=== PATIENT | female | born 1990 | race Caucasian/White ===

== ENCOUNTER 2022-11-11 20:27 | Emergency (ER) | payer MEDICAID, SELFPAY | END 2022-11-11 20:55 | disposition left against medical advice (07) | PROVIDERS: Emergency Provider Emergency Medicine | DX: N39.0 Urinary tract infection, site not specified (principal) ==

== ENCOUNTER 2024-01-08 22:21 | Emergency (ER) | payer MEDICAID, SELFPAY ==
--- NOTE | ~2024-01-08 | XR_ITS ---
Examination: Right ankle and right foot. CLINICAL INDICATION: Injury. Pain. TECHNIQUE: Right foot 3 views. Right ankle 2 views. FINDINGS: Right foot: There is mildly displaced oblique fracture distal fifth metatarsal. No additional fracture seen. The soft tissues are mildly swollen. Right ankle: There is moderate lateral malleolar soft tissue swelling. The ankle mortise and subtalar joints are normal. XR/XR foot RT min 3V IMPRESSION: Minimally displaced oblique fracture distal fifth metatarsal No additional fracture seen. Mild soft tissue swelling lateral ankle without any visible acute fracture of ankle.
--- NOTE | ~2024-01-08 | XR_ITS ---
Examination: Right ankle and right foot. CLINICAL INDICATION: Injury. Pain. TECHNIQUE: Right foot 3 views. Right ankle 2 views. FINDINGS: Right foot: There is mildly displaced oblique fracture distal fifth metatarsal. No additional fracture seen. The soft tissues are mildly swollen. Right ankle: There is moderate lateral malleolar soft tissue swelling. The ankle mortise and subtalar joints are normal. XR/XR ankle RT min 3V IMPRESSION: Minimally displaced oblique fracture distal fifth metatarsal No additional fracture seen. Mild soft tissue swelling lateral ankle without any visible acute fracture of ankle.
[2024-01-08 22:31] VITALS: BP 150/87; PULSE 100; RESP 16; TEMP 37.1; O2SAT 100; BMI 22.5
--- NOTE | 2024-01-09 00:05 | ED_ITS ---
HPI - Extremity Injury (Lower) General Chief Complaint: Extremity Injury, Lower Stated Complaint: right ankle inj Time Seen by Provider: 01/08/24 23:40 Source: patient Mode of arrival: ambulatory Limitations: no limitations History of Present Illness HPI Narrative: Patient apparently slipped 4 steps just prior to arrival come here with pain in the right ankle and right foot no other injury Related Data Previous Rx's Medication Instructions Recorded ibuprofen 600 mg tablet 600 mg PO Q6H PRN fever or pain 01/09/24 #30 tabs Allergies Allergy/AdvReac Type Severity Reaction Status Date / Time No Known Allergies Allergy Verified 01/08/24 22:32 [No Known Allergies*] Review of Systems 2 Review of Systems: Yes all other systems are reviewed and are negative Physical Exam 2 Vital Signs: Vital Signs: Last Vital Signs Temp 98.8 F 01/08/24 22:31 Pulse 100 01/08/24 22:31 Resp 16 01/08/24 22:31 BP 150/87 H 01/08/24 22:31 Pulse Ox 100 01/08/24 22:31 O2 Del Method Room Air 01/08/24 22:31 BMI result Body Mass Index 22.5 Const: General: healthy appearing, comfortable and no acute distress HEENT: Head: Yes normal to inspection and Yes atraumatic Chest: Chest palpation & inspection: normal inspection of the chest and normal palpation of entire chest wall Resp: Effort & Inspection: normal respiratory effort Auscultation: clear to auscultation bilaterally Cardio: Palpation: normal PMI Rate: regular rate Rhythm: regular rhythm Extrem: Ankle/foot/toe images: 1. Tenderness and swelling at the base of 5th metatarsal 2. Swelling of the ankle joint neurovasc ular intact good range of movement Medical Decision Making Medical Decision Making MDM Narrative: Patient's right metatarsal fracture ortho boot was applied , crutches were given advised to follow with orthopedic Differential Diagnosis Differential Diagnoses: The differential diagnosis associated with the presentation includes Ankle fracture/metatarsal fracture Independent Interpretation I performed an independent interpretation of an: Plain X-Ray Radiology Impression Discussion of test interpretation with radiology: I have reviewed the radiologist's reading. Discharge Plan Discharge Clinical Impression: Metatarsal bone fracture Patient Disposition: Home, Self-Care Instructions: Foot Fracture in Adults (ED) Additional Instructions: Wear the ortho boot and use crutches for ambulation Ibuprofen for pain Follow-up with orthopedics in 2 weeks Keep your left leg elevated Prescriptions: New ibuprofen 600 mg tablet 600 mg PO Q6H PRN (Reason: fever or pain) Qty: 30 0RF Referrals: Michele Williamson MD [Physician] - 2 weeks
[2024-01-09] MEDS: oxyCODONE HCl Immed Release 5 MG TABLET 10 MG PO (00:35)
--- NOTE | 2024-01-09 00:53 | PC.NURSE ---
pt medicated per mar tolerated well with water. misha bandage applied to R. ankle prior to boot by Dr. Huang. ortho boot applied pt educated on use. crutches and training provided pt demonstrates proper use of crutches. +circulation. pt verbalizes d/c instructions. medical staff services manager at bedside.
== END 2024-01-09 00:55 | disposition home or self-care (01) ==
PROVIDERS: Emergency Provider Internal Medicine
DX: S92.351A Displaced fracture of fifth metatarsal bone, right foot, initial encounter for closed fracture (principal); W10.8XXA Fall (on) (from) other stairs and steps, initial encounter; Y93.89 Activity, other specified; Y92.018 Other place in single-family (private) house as the place of occurrence of the external cause; Y99.9 Unspecified external cause status
CPT/HCPCS: 73610; 73630; 99283

== ENCOUNTER 2024-01-15 14:39 | Outpatient (AMB) | payer MEDICAID, SELFPAY ==
[2024-01-15 14:43] VITALS: BMI 22.5
--- NOTE | 2024-01-15 14:43 | A.OFFVIS_ITS ---
Intake Vital Signs 01/15/24 14:43 Height 5 ft Weight 115 lb BMI 22.5 Intake Visit Reasons: FC - rt distal fifth metatarsal fx, DOI 01/08/24 Intake Note: Shasha is a 33 year old female who presents today with a short walking boot for a evaluation for her right distal fifth metatarsal fx, DOI 01/08/24. Patient reports she slipped 4 steps down leading her to injure her right ankle. She states that her pain has gotten better, however she states still having some dull pain on the ankle. Allergies No Known Allergies [No Known Allergies*] Allergy (Verified 01/15/24 14:46) HPI FC - rt distal fifth metatarsal fx, DOI 01/08/24 HPI Details 33-year-old female, who is Yakut speak ing, presents in the office today, as a new patient, for an evaluation of right ankle/foot pain. The patient presented to the ED on 01/09/2024 status post slipping down 4 steps. She was placed in a walking boot with crutches and prescribed Ibuprofen 600 mg PO Q6H PRN. While in the office today the patient presents in a short walking boot. She reports slipping down 4 steps. She states her pain has improved, but does still have a dull pain in the ankle. 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 Review of Systems Const All systems reviewed & are unremarkable except as noted in HPI and below Physical Exam Vital Signs: BMI result Body Mass Index 22.5 Const General: cooperative and no acute distress Orientation/consciousness: patient oriented x3 Resp Effort & Inspection: normal respiratory effort and able to speak in complete sentences Cardio Peripheral pulses: Peripheral pulses 2+ throughout Skin General skin exam: no rashes or lesions noted Neuro General: patient oriented x3 Extrem Other: Right ankle: Significant ecchymosis on the lateral side of the foot extend to the lateral aspect of the ankle and extending roughly ? of the way up on the lateral aspect of the right lower extremity. Very tenderness to palpation over the medial and lateral malleolus. Sensation intact. Pedal pulse intact. Moderate edema. Office Procedures Fracture Care Fracture Billing Code: Fracture Billing Code Assessment & Plan Assessment & Plan (1) High ankle sprain of right lower extremity: Code(s): S93.491A - Sprain of other ligament of right ankle, initial encounter (2) Fracture of fifth metatarsal bone of right foot: Code(s): S92.351A - Displaced fracture of fifth metatarsal bone, right foot, initial encounter for closed fracture (3) Moderate right ankle sprain: Code(s): S93.401A - Sprain of unspecified ligament of right ankle, initial encounter Plan Ms. Jose G Hogan is a [id number] female, who is Yakut speaking, presents in the office today, as a new patient, for an evaluation of right ankle/foot pain. The patient presented to the ED on 01/09/2024 status post slipping down 4 steps. She was placed in a walking boot with crutches and prescribed Ibuprofen 600 mg PO Q6H PRN. While in the office today the patient presents in a short walking boot. She reports slipping down 4 steps. She states her pain has improved, but does still have a dull pain in the ankle. 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 The patient was given a stockinette and VINICIO wrap for compression. She will remain in the short walking boot. She may weight bear as tolerated with the use of crutches. An order has been place for physical therapy to work on gentle ROM and modalities because of the amount of pain the patient is experiencing. I would like to try to limit any potential stiffness from lack of motion. She was given an out of work note until her follow up. Follow up will be in 4 weeks with repeat x-rays, or sooner if needed. X-rays of the right foot, obtained on 01/08/2024, revealed: 1.) Minimally displaced oblique fracture distal fifth metatarsal 2.) No additional fracture seen. 3.) Mild soft tissue swelling lateral ankle without any visible acute fracture of ankle. Orders: Orders PT Evaluation and Treatment Today S92.351A - Displaced fracture of fifth metatarsal bone, right foot, initial encounter for closed fracture, S93.402A - Sprain of unspecified ligament of left ankle, initial encounter, S93.491A - Sprain of other ligament of right ankle, initial encounter Patient Instructions: Scribed by Clarisse Noriega medical esthetician, for Shanti Mcclendon PA-C on 01/15/2024 at 2:48 pm, EST. Coding Level of Care Code New Pt Level 4 (05268) Diagnoses High ankle sprain of right lower extremity S93.491A Fracture of fifth metatarsal bone of right foot S92.351A Moderate right ankle sprain S93.401A CPT Codes Fracture Care - Fracture Billing Code: Fracture Billing Code ([id number])
== END 2024-01-15 15:26 | disposition home or self-care (01) ==
PROVIDERS: Visit Provider Physician Assistant
DX: S93.491A Sprain of other ligament of right ankle, initial encounter (principal); S92.351A Displaced fracture of fifth metatarsal bone, right foot, initial encounter for closed fracture; S93.401A Sprain of unspecified ligament of right ankle, initial encounter
CPT/HCPCS: 99204

== ENCOUNTER → 2024-01-15 14:39 | Outpatient (BNVA) | payer MEDICAID, SELFPAY | PROVIDERS: Visit Provider Physician Assistant | DX: S92.351A Displaced fracture of fifth metatarsal bone, right foot, initial encounter for closed fracture (principal); S93.491A Sprain of other ligament of right ankle, initial encounter | CPT/HCPCS: 99212 ==

== ENCOUNTER 2024-02-17 10:06 | Outpatient (AMB) | payer MEDICAID, SELFPAY ==
[2024-02-17 10:14] VITALS: BMI 22.5
--- NOTE | 2024-02-17 10:14 | A.OFFVIS_ITS ---
Intake Vital Signs 02/17/24 10:14 Height 5 ft Weight 115 lb BMI 22.5 Intake Visit Reasons: ov-rt distal fifth metatarsal fx, DOI 01/08/24 Intake Note: Shasha is a 33 year old female who presents today with a short walking boot for a follow up for her right distal fifth metatarsal fx, DOI 01/08/24. Patient reports she hasn't tried calling P.T due to not being sure if she needed to go after the appointment or before she was seen to start P.T. Patient is currently doing well, she states her foot is feeling better. Allergies No Known Allergies [No Known Allergies*] Allergy (Verified 02/17/24 10:14) HPI ov-rt distal fifth metatarsal fx, DOI 01/08/24 HPI Details 33-year-old female, who is Kyrgyz speak ing, presents in the office today for a follow up of a right ankle sprain and right 5th metatarsal fracture, which occurred on 01/09/2024 status post slipping down 4 steps. I last saw the patient in the office on 01/15/2024 when he was placed in an VINICIO wrap for compression and given a short walking boot. She was instructed to weight bear as tolerated with the use of crutches. She was referred to physical therapy. She was given an out of work note until follow up. While in the office today the patient reports she has not tried to call physical therapy due to not being sure if she needed to go after the appointment or before. She reports she is doing well and states her foot is doing better. 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 No ecchymosis, erythema, or edema. Tenderness to palpation over the shaft of the 5th metatarsal. Able to dorsiflex and plantarflex with no ROM restrictions, but has difficulties with inversion and eversion. Sensation intact. Pedal pulse is intact. Assessment & Plan Assessment & Plan (1) High ankle sprain of right lower extremity: Code(s): S93.491A - Sprain of other ligament of right ankle, initial encounter Qualifiers: Encounter type: subsequent encounter Qualified Code(s): S93.491D - Sprain of other ligament of right ankle, subsequent encounter (2) Fracture of fifth metatarsal bone of right foot: Code(s): S92.351A - Displaced fracture of fifth metatarsal bone, right foot, initial encounter for closed fracture Qualifiers: Encounter type: subsequent encounter Fracture alignment: nondisplaced Fracture healing: with routine healing Fracture type: closed Qualified Code(s): S92.354D - Nondisplaced fracture of fifth metatarsal bone, right foot, subsequent encounter for fracture with routine healing (3) Moderate right ankle sprain: Code(s): S93.401A - Sprain of unspecified ligament of right ankle, initial encounter Qualifiers: Encounter type: subsequent encounter Qualified Code(s): S93.401D - Sprain of unspecified ligament of right ankle, subsequent encounter Plan Ms. Jose G Hogan is a 33-year-old female, who is Kyrgyz speaking, presents in the office today for a follow up of a right ankle sprain and right 5th metatarsal fracture, which occurred on 01/09/2024 status post slipping down 4 steps. I last saw the patient in the office on 01/15/2024 when he was placed in an VINICIO wrap for compression and given a short walking boot. She was instructed to weight bear as tolerated with the use of crutches. She was referred to physical therapy. She was given an out of work note until follow up. While in the office today the patient reports she has not tried to call physical therapy due to not being sure if she needed to go after the appointment or before. She reports she is doing well and states her foot is doing better. 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 I would like for the patient to attend physical therapy to work on ROM. She did not attend after the referral was placed at the last appointment due to a misunderstanding of when she was supposed to attend. I did explain to her that she should attend physical therapy now and to begin to wean out of the boot in 2-3 weeks. She may weight bear as tolerated. 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 Follow up will be in 4 weeks, or sooner if needed. X-rays of the right ankle which were obtained while in the office today and were reviewed by me, Shanti Mcclendon PA-C, revealed routine healing of a right 5th metatarsal shaft fracture. Orders: Orders PT Evaluation and Treatment Today S92.351A - Displaced fracture of fifth metatarsal bone, right foot, initial encounter for closed fracture, S93.401A - Sprain of unspecified ligament of right ankle, initial encounter XR foot RT min 3V Today M79.673 - Pain in unspecified foot Patient Instructions: Scribed by Clarisse Noriega medical assistant dermatology, for Shanti Mcclendon PA-C on 02/17/2024 at 10:09 am, EST. Coding Level of Care Code Global (19929) Diagnoses High ankle sprain of right lower extremity, subsequent encounter S93.491D Encounter type: subsequent encounter Closed nondisplaced fracture of fifth metatarsal bone of right foot with routine healing, subsequent encounter S92.354D Encounter type: subsequent encounter Fracture alignment: nondisplaced Fracture healing: with routine healing Fracture type: closed Moderate right ankle sprain, subsequent encounter S93.401D Encounter type: subsequent encounter
== END 2024-02-17 10:43 | disposition home or self-care (01) ==
PROVIDERS: Visit Provider Physician Assistant
DX: S93.491D Sprain of other ligament of right ankle, subsequent encounter (principal); S92.354D Nondisplaced fracture of fifth metatarsal bone, right foot, subsequent encounter for fracture with routine healing
CPT/HCPCS: 99213

== ENCOUNTER 2024-02-17 14:54 | Outpatient (REF) | payer MEDICAID, SELFPAY ==
--- NOTE | ~2024-02-17 | XR_ITS ---
EXAMINATION: XR FOOT, RIGHT CLINICAL INFORMATION: Right foot pain COMPARISON: Right foot x-ray on 01/08/2024 TECHNIQUE: AP, lateral, and oblique views of the right foot. FINDINGS: BONES: Persistent oblique fracture distal shaft of right fifth metatarsal with mild medial displacement is again visualized. No callus formation could be seen. JOINTS: Alignment of joints is normal. SOFT TISSUE: Soft tissue is normal. No radiopaque foreign body or abnormal air collection is seen. XR/XR foot RT min 3V IMPRESSION: Unchanged oblique fracture distal shaft of right fifth metatarsal with mild medial displacement. No callus formation could be seen.
== END 2024-02-17 14:55 | disposition home or self-care (01) ==
LOC: HO.HOSX 14:54
PROVIDERS: Visit Provider Physician Assistant
DX: M79.673 Pain in unspecified foot (principal); S93.401A Sprain of unspecified ligament of right ankle, initial encounter; S92.351A Displaced fracture of fifth metatarsal bone, right foot, initial encounter for closed fracture; W10.8XXA Fall (on) (from) other stairs and steps, initial encounter; Y93.01 Activity, walking, marching and hiking; Y92.9 Unspecified place or not applicable; Y99.9 Unspecified external cause status
CPT/HCPCS: 73630; 99212

== ENCOUNTER 2024-03-16 13:45 | Outpatient (REF) | payer MEDICAID, SELFPAY ==
--- NOTE | ~2024-03-16 | XR_ITS ---
EXAMINATION: XR FOOT, RIGHT CLINICAL INFORMATION: Pain in unspecified foot. COMPARISON: 02/17/2024, 01/08/2024. TECHNIQUE: AP, lateral, and oblique views of the right foot. FINDINGS: Redemonstration of oblique, mildly displaced fracture through the [id number] shaft of the fifth metatarsal with some overriding of fracture fragments. Mild interval bridging callus formation. Alignment is stable. XR/XR foot RT min 3V IMPRESSION: Redemonstration of oblique, mildly displaced fracture through the [id number] shaft of the fifth metatarsal with some overriding of fracture fragments. Mild interval bridging callus formation.
== END 2024-03-16 13:46 | disposition home or self-care (01) ==
LOC: HO.HOSX 13:45
PROVIDERS: Visit Provider Physician Assistant
DX: S92.354D Nondisplaced fracture of fifth metatarsal bone, right foot, subsequent encounter for fracture with routine healing (principal); S93.491D Sprain of other ligament of right ankle, subsequent encounter
CPT/HCPCS: 73630; 99212

== ENCOUNTER 2024-03-16 13:45 | Outpatient (AMB) | payer MEDICAID, SELFPAY ==
--- NOTE | 2024-03-16 13:58 | A.OFFVIS_ITS ---
Intake Intake Visit Reasons: ov-rt distal fifth metatarsal fx, DOI 01/08/24 Intake Note: Shasha is a 33 year old female who presents today for a follow up for her right distal fifth metatarsal fx, DOI 01/08/24. Patient reports she hasn't started PT due to not getting a referral from her PCP. She does have an appointment with physical therapy tomorrow. Patient is doing well, she expresses that her ankle feels better but a bit sore. Allergies No Known Allergies [No Known Allergies*] Allergy (Verified 03/16/24 14:00) HPI ov-rt distal fifth metatarsal fx, DOI 01/08/24 HPI Details 33-year-old female who presents in the [facility] today for a follow up of a right ankle sprain and right 5th metatarsal fracture, which occurred on 01/09/2024 status post slipping down 4 steps. I last saw the patient in the office on 02/17/2024 when she was ordered to attend PT to work on ROM. She was instructed to begin to wean out of the boot with in 2-3 weeks and to weight bear as tolerated. 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 While in the office today the patient reports she has not started physical therapy due to not getting a referral from her PCP. She claims she has an appointment with physical therapy tomorrow. She states she is doing well and states her ankle is feeling better but is a bit sore. 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 No ecchymosis, erythema, or edema. Tenderness to palpation over the shaft of the 5th metatarsal. Able to dorsiflex and plantarflex with no ROM restrictions, inversion and eversion no restrictions. Sensation intact. Pedal pulse is intact. Assessment & Plan Assessment & Plan (1) High ankle sprain of right lower extremity: Code(s): S93.491A - Sprain of other ligament of right ankle, initial encounter Qualifiers: Encounter type: subsequent encounter Qualified Code(s): S93.491D - Sprain of other ligament of right ankle, subsequent encounter (2) Fracture of fifth metatarsal bone of right foot: Code(s): S92.351A - Displaced fracture of fifth metatarsal bone, right foot, initial encounter for closed fracture Qualifiers: Encounter type: subsequent encounter Fracture alignment: nondisplaced Fracture healing: with routine healing Fracture type: closed Qualified Code(s): S92.354D - Nondisplaced fracture of fifth metatarsal bone, right foot, subsequent encounter for fracture with routine healing (3) Moderate right ankle sprain: Code(s): S93.401A - Sprain of unspecified ligament of right ankle, initial encounter Qualifiers: Encounter type: subsequent encounter Qualified Code(s): S93.401D - Sprain of unspecified ligament of right ankle, subsequent encounter Plan Ms. Jose G Hogan is a 33-year-old female who presents in the office today for a follow up of a right ankle sprain and right 5th metatarsal fracture, which occurred on 01/09/2024 status post slipping down 4 steps. I last saw the patient in the office on 02/17/2024 when she was ordered to attend PT to work on ROM. She was instructed to begin to wean out of the boot with in 2-3 weeks and to weight bear as tolerated. 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 While in the office today the patient reports she has not started physical therapy due to not getting a referral from her PCP. She claims she has an appointment with physical therapy tomorrow. She states she is doing well and states her ankle is feeling better but is a bit sore. Patient is scheduled to begin PT tomorrow. She is to wean out of the boot in the next week. She will return to work full-time, regular duty on Friday03/22/2024. Follow up will be in 5 weeks for ROM check and final x-rays, or sooner if needed. X-rays of the right ankle which were obtained while in the office today and were reviewed by me, Shanti Mcclendon PA-C, revealed routine healing of a right 5th metatarsal fracture. Orders: Orders XR foot RT min 3V Today M79.673 - Pain in unspecified foot Patient Instructions: Scribed by Clarisse Noriega medical radiation therapist, for Shanti Mcclendon PA-C on 03/16/2024 at 2:15 pm, EST. Coding Level of Care Code Est Pt Level 3 (26839) Diagnoses High ankle sprain of right lower extremity, subsequent encounter S93.491D Encounter type: subsequent encounter Closed nondisplaced fracture of fifth metatarsal bone of right foot with routine healing, subsequent encounter S92.354D Encounter type: subsequent encounter Fracture alignment: nondisplaced Fracture healing: with routine healing Fracture type: closed Moderate right ankle sprain, subsequent encounter S93.401D Encounter type: subsequent encounter
== END 2024-03-16 14:46 | disposition home or self-care (01) ==
LOC: HO.HOS 13:45
PROVIDERS: Visit Provider Physician Assistant
DX: S93.491D Sprain of other ligament of right ankle, subsequent encounter (principal); S92.354D Nondisplaced fracture of fifth metatarsal bone, right foot, subsequent encounter for fracture with routine healing; S93.401D Sprain of unspecified ligament of right ankle, subsequent encounter
CPT/HCPCS: 99213

== ENCOUNTER 2024-04-20 15:33 | Outpatient (REF) | payer MEDICAID, SELFPAY | END 2024-04-20 15:34 | disposition home or self-care (01) | LOC: HO.HOSX 15:33 | PROVIDERS: Visit Provider Physician Assistant | DX: Z13.89 Encounter for screening for other disorder (principal) ==

== ENCOUNTER 2024-05-11 10:08 | Outpatient (REF) | payer MEDICAID, SELFPAY | END 2024-05-11 10:09 | disposition home or self-care (01) | LOC: HO.HOSX 10:08 | PROVIDERS: Visit Provider Physician Assistant | DX: Z13.89 Encounter for screening for other disorder (principal) ==